=== PATIENT | female | born 1955 | race Caucasian/White ===

== ENCOUNTER 2022-01-15 17:11 | Emergency (ER) | payer BC, SELFPAY ==
--- NOTE | ~2022-01-15 | XR_ITS ---
XR hand RT min 3V 01/15/2022 17:58 Indication: Right hand pain after fall Procedure: 4 views right hand Comparison: No prior studies for comparison. Findings: There is a displaced intra-articular fracture dorsal base of the fifth metacarpal. There is moderate polyarticular osteoarthritis. No other fracture identified. Mild soft tissue swelling. No f oreign bodies. Impression: 1: Nondisplaced intra-articular fracture dorsal base of the right fifth metacarpal. Reviewed, dictated and finalized at location A. Impression: 1: Nondisplaced intra-articular fracture dorsal base of the right fifth metacar pal.
[2022-01-15 17:45] VITALS: BP 142/67; PULSE 90; RESP 20; TEMP 36.6; O2SAT 97
--- NOTE | 2022-01-15 17:53 | ED.UPPEXIN ---
HPI - Extremity Injury (Upper) General Chief Complaint: Extremity Injury, Upper Stated Complaint: right hand fracture Time Seen by Provider: 01/15/22 17:48 Source: patient, RN notes reviewed and old records reviewed Mode of arrival: ambulatory Limitations: no limitations History of Present Illness HPI narrative: 66 year old female who presents to express care with complaints of falling today at the arthritis center at [facility] with injury to her right hand ulnar aspect. Patient has bruising, redness, and swelling to the dorsal right hand with pain with movement. Patient states that she was x-rayed at the arthritis center and then received a call stating that she had fracture. Patient reports that her PCP is out of office till Tuesday and it being holiday weekend she was told to come to express care and have hand splinted. Patient states that arthritis doctor called pain medication to her pharmacy for her. MD complaint: injury to: left and hand Onset (ago): hour(s) Other injuries: none Handedness: right Exacerbating factors: movement of extremity Related Data Home Medications Medication Instructions Recorded Confirmed bupropion HCl 150 mg 24 hr tablet, tablet PO 01/15/22 extended release folic acid 5 mg capsule 5 mg PO WEEKLY 01/15/22 01/15/22 gabapentin 300 mg tablet mg PO 01/15/22 hydroxychloroquine 200 mg tablet mg PO 01/15/22 (Plaquenil) methotrexate sodium 7.5 mg tablet 7.5 mg PO WEEKLY 01/15/22 01/15/22 nitrofurantoin 100 mg capsule 100 mg PO Q12H 01/15/22 01/15/22 nitrofurantoin 50 mg capsule mg PO 01/15/22 pravastatin 20 mg tablet 20 mg PO HS 01/15/22 01/15/22 Allergies Allergy/AdvReac Type Severity Reaction Status Date / Time No Known Allergies Allergy Verified 01/15/22 17:39 Review of Systems Review of Systems: CONSTITUTIONAL: Denies fever, chills, or sweats. EYES: Denies visual changes, redness, or discharge. ENT: Denies rhinorrhea, congestion, sore throat, or otalgia. CARDIOVASCULAR: Denies chest pain, palpitations, or edema. RESPIRATORY: Denies cough or dyspnea. GASTROINTESTINAL: Denies abdominal pain, nausea, vomiting, or diarrhea. GENITOURINARY: Denies dysuria or hematuria. SKIN: Denies rash or itching. MUSCULOSKELETAL: Denies back pain,positive right hand pain, or myalgia. NEUROLOGIC: Denies headache, numbness, or weakness. PSYCHIATRIC: Positive for anxiety or depression. [facility] Past Medical History Medical History (Updated 01/17/22 @ 19:30 by Conchita Dorman NP) Diverticulitis Elevated cholesterol Raynaud's disease Rheumatoid arthritis UTI (urinary tract infection) Surgical History Surgical History (Updated 01/17/22 @ 19:38 by Conchita Dorman NP) H/O elbow surgery pins in elbow right History of bladder surgery bladder tie up has InterStim bladder implant also History of colon surgery History of hysterectomy Hx of bilateral breast reduction surgery Social History Social History (Updated 01/15/22 @ 18:23 by Conchita Dorman NP) Smoking status: Never smoker Alcohol intake: never Substance use type: does not use Living arrangements: with family Gender identity (if verbalized by the patient): Female Comments At time of signature, agree with nursing past medical, surgical, social and family history. There is no relevant family history pertinent to the presenting complaint Exam Narrative: GENERAL: Well-appearing, well-nourished, and in no acute distress. HEAD: Normocephalic, atraumatic. EYES: PERRLA and EOMI. ENT: Nares clear, no rhinorrhea or epistaxis. Mucous membranes moist.TM's normal with good light reflex, throat pink with no lesions or exudates NECK: Supple. no lymphadenopathy CHEST: Clear to auscultation. No respiratory distress. SAO2 97% on room air HEART: Regular rate and rhythm. No murmur heard. Normal peripheral pulses. ABDOMEN: Soft, nontender, nondistended, normal active bowel sounds. EXTREMITIES: Normal range of motion. No edema.Exceptio
== END 2022-01-15 19:08 | disposition home or self-care (01) ==
PROVIDERS: Emergency Provider Registered Nurse
DX: S62.346A Nondisplaced fracture of base of fifth metacarpal bone, right hand, initial encounter for closed fracture (principal); W19.XXXA Unspecified fall, initial encounter; E78.00 Pure hypercholesterolemia, unspecified; I73.00 Raynaud's syndrome without gangrene; M06.9 Rheumatoid arthritis, unspecified
CPT/HCPCS: 29125; 73130; 99214; A4565; G0463